=== PATIENT | female | born 1960 | race Caucasian/White ===

== ENCOUNTER → 2021-12-23 | Outpatient (CLI) | payer OTHER ==
--- NOTE | 2021-12-23 10:28 | RAD ---
EXAM: Left knee, 2 views. HISTORY: Pain. COMPARISON: None. FINDINGS: 2 views of the left knee are obtained. There is no fracture, dislocation or subluxation. Th ere is no joint effusion. IMPRESSION: No acute osseous finding. Electronically signed by: Eliana Lyn MD (12/23/2021 10:26 AM) [id number]
--- NOTE | 2021-12-23 10:30 | RAD ---
EXAM: Lumbar spine, 2 views. HISTORY: Pain. COMPARISON: None. FINDINGS: 2 views of the lumbar spine are obtained. There are 6 nonrib-bearing lumbar segments. For t he purposes of this dictation, the last segment is considered L6. Based on this numbering system, the re is 10 mm grade 1 anterolisthesis of L6 on S1. There is minimal retrolisthesis at additional lumbar levels, a component which is projectional due to slight lumbar dextrocurvature. There is severe dege nerative endplate remodeling with disc space narrowing and facet arthropathy at L6-S1. There is mild endplate remodeling at the remainder of the lumbar levels and mild disc space narrowing at the mid lo wer lumbar levels. IMPRESSION: 1. 6 nonrib-bearing vertebral segments, a normal variant. 2. Grade 1 anterolisthesis of L6 on S1 with associated severe degenerative changes. 3. Mild degenerative change throughout the remainder of the lumbar spine. Electronically signed by: Eliana Lyn MD (12/23/2021 10:28 AM) [id number]
== END ==
LOC: RAD 09:55
PROVIDERS: ATTEND Family Medicine
DX: Z02.71 Encounter for disability determination (principal); M47.817 Spondylosis without myelopathy or radiculopathy, lumbosacral region; M43.17 Spondylolisthesis, lumbosacral region; M48.07 Spinal stenosis, lumbosacral region; M48.8X7 Other specified spondylopathies, lumbosacral region; M25.562 Pain in left knee
CPT/HCPCS: 72100; 73560